=== PATIENT | male | born 1975 | race Caucasian/White ===

== ENCOUNTER 2021-06-01 03:00 | Day surgery (SDC) | payer BC, SELFPAY ==
[2021-05-13 14:42] VITALS: BMI 29.9
[2021-06-01 11:55] VITALS: BP 112/81; PULSE 100; RESP 18; TEMP 36.2; O2SAT 100; BMI 29.2
[2021-06-01] MEDS: LACTATED RINGERS 1,000 ML 150 ML IV CONT (12:09)
--- NOTE | 2021-06-01 12:26 | P.PNAN_ITS ---
Anes - Initial Pre Proc Eval Procedure: Operation Date: 06/01/21 13:00 Proposed Procedures p Esophagogastroduodenoscopy & Screening Colonoscopy - Carlo Walker MD Date/Time: 06/01/21 12:26 Surgeon: Carlo Key MD Pre Op Diagnosis: GERD, Bloating, neoplasm screening Patient Data Age: 46 Gender: M Height: 1.83 m Weight: 98 kg Last Vital Signs Temp 97.2 F L 06/01/21 11:55 Pulse 100 06/01/21 11:55 Resp 18 06/01/21 11:55 BP 112/81 06/01/21 11:55 Pulse Ox 100 06/01/21 11:55 Allergies Allergy/AdvReac Type Severity Reaction Status Date / Time No Known Drug Allergies Allergy Unknown Unknown Verified 06/01/21 11:54 Home Medications Medication Instructions Recorded Confirmed Type rosuvastatin 20 mg tablet 10 mg PO HS tablet 03/09/21 06/01/21 History lansoprazole 15 mg PO DAILY PRN 05/13/21 06/01/21 History metoprolol succinate 25 mg PO HS 05/13/21 06/01/21 History Patient hx anesthesia problems: none Family hx anesthesia problems: none Results Review: All pre-operative results and documents have been reviewed as part of the pre-operative evaluation. [facility] Past Medical History Medical History (Updated 04/30/21 @ 13:23 by Carlo Key MD) Bloating Colon cancer screening Dyslipidemia Essential (primary) hypertension GERD without esophagitis Intermittent low back pain Family History Family History Grandparent Family history of malignant neoplasm of bone Family history of malignant neoplasm of ovary Other Diabetes mellitus Social History Social History (Updated 04/30/21 @ 13:06 by Karen Cuello CMA) Smoking status: Never smoker Alcohol intake: current Drinks per week: 2 Substance use: never Substance use type: does not use Living arrangements: with family Gender identity (if verbalized by the patient): Male Spiritual care concerns: No Anes - Eval Final PreProcedure Day of Procedure 06/01/21 12:26 Patient weight: overweight Heart: regular rate and rhythm Lungs: clear to auscultation Airway: Mallampati scale class II Neurological: alert and oriented Last oral intake: >/= 8 hours ASA classification: II Emergent: no Anesthetic plan: proceed Anesthesia type and monitoring: general GIVS and standard monitoring Results Review: All pre-operative results and documents have been reviewed as part of the pre-operative evaluation. Informed Consent: The patient's anesthetic plan and its attendant risks and benefits were discussed with the patient/family/POA. Questions were solicited and answers provided to the satisfaction of the patient/family/POA.
--- NOTE | 2021-06-01 12:49 | PM.HPGS ---
History of Present Illness History of Present Illness Consent: Risks, benefits, and alternatives have been discussed and questions answered. Patient agrees to proceed with procedure. Chief complaint: GERD, Bloating, neoplasm screening Narrative: Brandon Pelayo is a 46 year old male with longstanding ged controlled with otc meds and change in diet but never had egd, also first colonoscopy today Review of Systems Constitutional: Constitutional: Denies headache(s) and Denies weakness Eyes: Eyes: Denies blurry vision ENT: Reports Normal hearing present, Denies headache(s) and Denies neck pain Cardiovascular: Cardiovascular: Denies chest pain and Denies dyspnea Respiratory: Respiratory: Denies dyspnea Gastrointestinal: Gastrointestinal: Reports no additional gastrointestinal complaints Genitourinary: Genitourinary: Denies dysuria Musculoskeletal: Musculoskeletal: Denies neck pain Integumentary/Breasts: Skin/Breast: Denies dry skin Neurologic: Reports Normal hearing present, Denies headache(s) and Denies weakness Psychiatric: Psychiatric: Denies anxiety Endocrine: Endocrine: Denies change in body appearance Hematologic/Lymphatic: Hematologic/Lymphatic: Denies easy bleeding Allergic/Immunologic: Allergic/Immunologic: Denies urticaria PMFSH Past Medical History Medical History (Updated 04/30/21 @ 13:23 by Carlo Key MD) Bloating Colon cancer screening Dyslipidemia Essential (primary) hypertension GERD without esophagitis Intermittent low back pain Family History Family History Grandparent Family history of malignant neoplasm of bone Family history of malignant neoplasm of ovary Other Diabetes mellitus Social History Social History (Updated 04/30/21 @ 13:06 by Karen Cuello CMA) Smoking status: Never smoker Alcohol intake: current Drinks per week: 2 Substance use: never Substance use type: does not use Living arrangements: with family Gender identity (if verbalized by the patient): Male Spiritual care concerns: No Meds Home Medications and Allergies Home Medications Medication Instructions Recorded Confirmed Type rosuvastatin 20 mg tablet 10 mg PO HS tablet 03/09/21 06/01/21 History lansoprazole 15 mg PO DAILY PRN 05/13/21 06/01/21 History metoprolol succinate 25 mg PO HS 05/13/21 06/01/21 History Allergies Allergy/AdvReac Type Severity Reaction Status Date / Time No Known Drug Allergies Allergy Unknown Unknown Verified 06/01/21 11:54 Vital Signs Vital Signs - 24 hr 06/01/21 11:55 Temperature 97.2 F L Pulse Rate 100 Respiratory Rate 18 Blood Pressure 112/81 Pulse Oximetry 100 Exam Const: General: comfortable and no acute distress HENMT: General nose exam: Normal nares present Eyes: General: appearance normal, both eyes and all related structures Neck: Neck: no JVD Resp: Auscultation: clear to auscultation bilaterally Cardio: Rate: regular rate Rhythm: regular rhythm GI: Inspection: non-distended GI Palp: Yes Soft to palpation Skin: General skin exam: normal color Neuro: General: gait normal Speech: normal speech Extrem: General: normal to inspection Psych: Mental Status: mental status grossly normal Assessment and Plan Assessment and plan (1) GERD without esophagitis: Code(s): K21.9 - Gastro-esophageal reflux disease without esophagitis Status: Acute Assessment and Plan: egd (2) Colon cancer screening: Code(s): Z12.11 - Encounter for screening for malignant neoplasm of colon Status: Acute Assessment and Plan: colonoscopy
--- NOTE | 2021-06-01 12:55 | SUR.OPER ---
EGD- [id number] [facility] [id number]
[2021-06-01 13:26] VITALS: BP 114/76; PULSE 71; RESP 18; O2SAT 99
[2021-06-01 13:36] VITALS: BP 114/81; PULSE 72; RESP 18; O2SAT 99
[2021-06-01 13:46] VITALS: BP 112/79; PULSE 69; RESP 18; O2SAT 99
== END 2021-06-01 14:04 | disposition home or self-care (01) ==
PROVIDERS: PCP Family Medicine; Visit Provider Internal Medicine Gastroenterology
PROC: 0DJ08ZZ Inspection of Upper Intestinal Tract, Via Natural or Artificial Opening Endoscopic (ICD-10-PCS; CPT 43235; principal; 2021-06-01 13:00)
DX: Z12.11 Encounter for screening for malignant neoplasm of colon (principal); D12.0 Benign neoplasm of cecum; D12.2 Benign neoplasm of ascending colon; D12.4 Benign neoplasm of descending colon; D12.5 Benign neoplasm of sigmoid colon; K63.5 Polyp of colon; K64.8 Other hemorrhoids; K21.9 Gastro-esophageal reflux disease without esophagitis; K29.70 Gastritis, unspecified, without bleeding; I10 Essential (primary) hypertension; E78.5 Hyperlipidemia, unspecified
CPT/HCPCS: 45380; 45385; 43239; 88305; J2704; J7120

== ENCOUNTER 2023-08-24 14:09 | Outpatient (CLI) | payer BC, SELFPAY ==
--- NOTE | ~2023-08-24 | US_ITS ---
EXAMINATION: US arterial ankle brachial ind DATE: 08/24/2023 16:19 INDICATION: Lower limb pain. Hypercholesterolemia and hypertension. TECHNIQUE: Segmental pressures and plethysmographic and Doppler waveforms of the brachial and lower e xtremity arteries were obtained. COMPARISON: None. FINDINGS: Right and left brachial artery pressures of 126 mm Hg and 126 mm Hg, respectively, are concordant (no rmal difference <= 30 mmHg). The right ankle-brachial index (MEKHI) is 1.42 (normal >= 0.9-1.0). The right great toe-brachial index (TBI) is 0.52 (normal >= 0.65). Arterial Doppler waveforms are triphasic with brisk systolic upstroke s at both right posterior tibial and dorsalis pedis arteries. The left MEKHI is 1.47. The left TBI is 0.72. Arterial Doppler waveforms are triphasic with brisk systo lic upstrokes at both left posterior tibial and dorsalis pedis arteries. IMPRESSION: 1. Mild arterial occlusive disease to the right lower limb with normal right MEKHI but mildly decreased right TBI. 2. No significant arterial occlusive disease to the left lower limb with normal left MEKHI and TBI. Reviewed, dictated and finalized at location B. DAY DIRECTOR IMPRESSION: 1. Mild arterial occlusive disease to the right lower limb with normal right AB I but mildly decreased right TBI. 2. No significant arterial occlusive disease to the left lower limb with normal left MEKHI and TBI.
== END 2023-08-24 14:10 | disposition home or self-care (01) ==
PROVIDERS: PCP Family Medicine; Visit Provider Nurse Practitioner Family
DX: I77.1 Stricture of artery (principal); I10 Essential (primary) hypertension; E78.00 Pure hypercholesterolemia, unspecified
CPT/HCPCS: 93922

== ENCOUNTER 2023-09-21 13:31 | Outpatient (CLI) | payer BC, SELFPAY ==
--- NOTE | ~2023-09-21 | MR_ITS ---
EXAMINATION: MR lumbar spine wo con DATE: 09/21/2023 14:40 INDICATION: Pain in left thigh. Tingling of the feet and left leg. Low back pain. TECHNIQUE: Magnetic resonance imaging (MRI) of the lumbar spine was performed without intravenous con trast. Sequences included sagittal T2-weighted FSE, sagittal T2-weighted FS FSE, sagittal T1-weighted FSE, and axial T2-weighted FSE. COMPARISON: None FINDINGS: There is 4 degrees levocurvature of lumbar spine. There is 3 mm retrolisthesis of L3 on L4, L4 on L5, and L5 on S1. Vertebral body heights are normal. There is mildly decreased disc height at L2-L3 and moderately decreased disc height at L4-L5 and L5-S1. The distal spinal cord signal intensit y is normal. The conus medullaris is at T12-L1. The following disc levels are specifically discussed: L1-L2: The disc does not extend beyond the endplate margin. There is mild bilateral facet joint osteo arthritis. There is no neural foraminal stenosis. There is no central canal stenosis. L2-L3: The disc is bulging and has an annular fissure. There is mild bilateral facet joint osteoarthr itis. There is mild bilateral neural foraminal stenosis. There is mild central canal stenosis. L3-L4: The disc is bulging and has an annular fissure. There is mild left facet joint osteoarthritis. There is mild right and moderate left neural foraminal stenosis. There is mild central canal stenosi s. L4-L5: The disc is bulging and has an annular fissure. There is mild bilateral facet joint osteoarthr itis. There is moderate bilateral neural foraminal stenosis. There is mild central canal stenosis. L5-S1: This is bulging and has an annular fissure. There is moderate left facet joint osteoarthritis. There is mild right and moderate left neural foraminal stenosis. There is mild central canal stenosi s. IMPRESSION: 1. Moderate lumbar spondylosis. Reviewed, dictated and finalized at location A.
--- NOTE | ~2023-09-21 | MR_ITS ---
EXAMINATION: MR femur LT wo con DATE: 09/21/2023 14:40 INDICATION: Left thigh pain TECHNIQUE: Magnetic resonance imaging (MRI) of the left thigh was performed without intravenous contr ast. A marker was placed over the site of maximal pain at the anterior mid thigh. Sequences included axial, sagittal and coronal T1-weighted FSE and fluid sensitive FSE STIR. The coronal images include the contralateral right thigh. COMPARISON: None. FINDINGS: The marker indicating the site of pain is positioned anterior to the distal rectus femoris muscle. Th ere is normal and symmetric muscle bulk and signal throughout both thighs. Visualized portions of the tendons all appear normal. The bone marrow signal is also normal throughout. No knee joint effusion. Neurovascular structures are unremarkable. No pathologically enlarged left inguinal lymphadenopathy. No abnormal masses or fluid collections identified. IMPRESSION: 1. Normal MRI of the left thigh. No etiology identified for reported pain at the anterior left thigh. Reviewed, dictated and finalized at location A. IMPRESSION: 1. Normal MRI of the left thigh. No etiology identified for reported pain at th e anterior left thigh.
== END 2023-09-21 13:32 ==
LOC: GOSHIMG 13:32
PROVIDERS: PCP Family Medicine; Visit Provider Nurse Practitioner Family
DX: M43.06 Spondylolysis, lumbar region (principal); M79.652 Pain in left thigh
CPT/HCPCS: 72148; 73721

== ENCOUNTER 2024-09-13 14:29 | Outpatient (CLI) | payer BC, SELFPAY ==
--- NOTE | 2024-09-13 | ECHO_ITS ---
Patient Info Name: Brandon Pelayo Age: 49 years : 1975 Gender: Male Ht: 72 in Wt: 227 lbs BSA: 2.31 m2 HR: 64 bpm BP: 142 / 92 mmHg Heart Rhythm: Sinus Rhythm Technical Quality: Fair Exam Date: 09/13/2024 3:01 PM Exam Location: Echo Lab Patient Status: Outpatient Admit Date: 09/13/2024 Staff Ordering Physician: Raudel, Jose Page MD Pc Installation Engineer: Caro Acuna RDCS Attending Provider: RaudelJose MD Referring Physician: Trish MARTINEZ; Exam Type: CA echo doppler color flow Study Info Indications I77.810 - Aortic root dilation Complete two-dimensional, color flow and Doppler transthoracic echocardiogram is performed. Summary 1. Left ventricular chamber dimension is normal. 2. Left ventricular systolic function is normal, estimated at 65-70%. 3. There is mildly increased left ventricular wall thickness. 4. The left ventricular diastolic function is grade I diastolic dysfunction. 5. Right ventricular chamber dimension is mildly enlarged. 6. Right ventricular systolic function is normal. 7. Right atrial chamber dimension is mildly enlarged. 8. Sinus of Valsalva measured at 4.0cm. Sinotubular junction 3.6cm. Ascending aorta 3.8cm. 9. No significant valvular disease. Left Ventricle Left ventricular chamber dimension is normal. Left ventricular systolic function is normal, estimated at 65-70%. There is mildly increased left ventricular wall thickness. The left ventricular diastolic function is grade I diastolic dysfunction. Right Ventricle Right ventricular chamber dimension is mildly enlarged. Right ventricular systolic function is normal. Left Atria Left atrial chamber dimension is normal. Right Atria Right atrial chamber dimension is mildly enlarged. Atrial Septum Intact interatrial septum visualized by color flow imaging. Aortic Valve The aortic valve is not well visualized. There is no aortic valve stenosis. There is no aortic valve regurgitation. Pulmonic Valve The pulmonic valve is not well visualized. There is no pulmonic regurgitation. Mitral Valve There is trace mitral valve regurgitation. Tricuspid Valve There is trace tricuspid valve regurgitation. Pericardium/Pleural There is no pericardial effusion. Inferior Vena Cava Normal inferior vena cava with >50% collapse upon inspiration consistent with normal right atrial pressure, 3 mmHg. Aorta Sinus of Valsalva measured at 4.0cm. Sinotubular junction 3.6cm. Ascending aorta 3.8cm. Left Ventricular Outflow Tract Name Value Normal LVOT 2D LVOT Diameter 2.0 cm LVOT Doppler LVOT Peak Gradient 5 mmHg LVOT Mean Gradient 3 mmHg LVOT VTI 25 cm LVOT VTI/AV VTI Ratio 0.8 LVOT Stroke Volume 80 ml LVOT CO 14.6 l/min LVOT CI 6.3 l/min/m2 Pulmonic Valve Name Value Normal PV Doppler PV Peak Gradient 6 mmHg Mitral Valve Name Value Normal MV Doppler MV Decel Carroll 435 cm/s2 MV PHT 54 ms MV Area (PHT) 4.0 cm2 4.0-5.0 MV Diastolic Function MV E Peak Velocity 82 cm/s MV A Peak Velocity 52 cm/s MV E/A 1.6 MV Decel Time 188 ms MV Annular TDI MV E/e' (Septal) 6.1 <=8.0 MV E/e' (Lateral) 5.9 <=8.0 MV E/e' (Average) 6.0 Tricuspid Valve Name Value Normal TV Regurgitation Doppler TR Peak Velocity 233 cm/s TR Peak Gradient 18 mmHg Estimated PAP/RSVP RA Pressure 3 mmHg <=5 PA Systolic Pressure 25 mmHg <36 RV Systolic Pressure 25 mmHg <36 Aorta Name Value Normal Ascending Aorta Ao Root Diameter (MM) 3.8 cm Ao Root Diam Index (MM) 1.7 cm/m2 Aortic Valve Name Value Normal AV Doppler AV Peak Velocity 136 cm/s AV Peak Gradient 7 mmHg AV Mean Gradient 5 mmHg AV VTI 32 cm AV Area (Cont Eq VTI) 2.5 cm2 >=3.0 AV Area (Cont Eq Laz) 2.6 cm2 AV Regurgitation 2D LVOT Area 3.2 cm2 Ventricles Name Value Normal LV Dimensions 2D/MM IVS Diastolic Thickness (2D) 1.1 cm 0.6-1.0 LVID Diastole (2D) 5.0 cm 4.2-5.8 LVIW Diastolic Thickness (2D) 1.1 cm 0.6-1.0 LVID Systole (2D) 2.9 cm 2.5-4.0 LVOT Diameter 2.0 cm LV Mass (2D Cubed) 205.06 g 88.00-224.00 LV Mass Index (2D Cubed) 89 g/m2 49-115 Relative Wall Thickness (2D) 0.44 LV Fractional Shortening/Ejection Fraction 2D/MM LV Fractional Shortening (2D) 41 % 25-43 LV EF (2D Teicholz) 72 % 52-72 LV Diastolic Volume (4C MOD) 126 ml LV EF (4C MOD) 64 % LV Diastolic Volume (2C MOD) 98 ml LV EF (2C MOD) 78 % LV Diastolic Volume (BP MOD) 115 ml 62-150 LV Diastolic Volume Index (BP MOD) 50 ml/m2 34-74 LV Systolic Volume (BP MOD) 31 ml 21-61 LV Systolic Volume Index (BP MOD) 14 ml/m2 11-31 LV EF (BP MOD) 73 % 52-72 LV Diastolic Length (4C) 9.3 cm LV Systolic Length (4C) 7.2 cm LV Stroke Volume (4C MOD) 80 ml RV Dimensions 2D/MM RVID Diastole (2D) 4.5 cm 2.5-3.5 Atria Name Value Normal LA Dimensions LA Dimension (MM) 3.1 cm 3.0-4.1 LA Volume (4C A-L) 52 ml LA Volume (BP A-L) 57 ml RA Dimensions RA Area (4C) 19.7 cm2 <=18.0 Report Signatures
--- NOTE | 2024-09-13 16:11 | IVDEFINITY ---
Attempted IV for Definity, IV blew, pt did not want to try again.
== END 2024-09-13 14:30 | disposition home or self-care (01) ==
PROVIDERS: PCP Family Medicine; Visit Provider Internal Medicine Cardiovascular Disease
DX: I77.810 Thoracic aortic ectasia (principal); I51.89 Other ill-defined heart diseases
CPT/HCPCS: 93306

== ENCOUNTER 2024-10-26 01:03 | Day surgery (SDC) | payer BC, SELFPAY ==
[2024-10-17 09:21] VITALS: BMI 30.8
[2024-10-26 08:48] VITALS: BP 145/87; PULSE 92; RESP 20; TEMP 36.2; O2SAT 99
--- NOTE | 2024-10-26 08:50 | P.PNAN_ITS ---
Anes - Initial Pre Proc Eval Procedure: Operation Date: 10/26/24 10:00 Proposed Procedures p Colonoscopy - Carlo Key MD Date/Time: 10/26/24 08:50 Surgeon: Carlo Key MD Pre Op Diagnosis: neoplasm screening Patient Data Age: 49 Gender: M Height: 1.83 m Weight: 101.9 kg Last Vital Signs Temp 36.2 C L 10/26/24 08:48 Pulse 92 10/26/24 08:48 Resp 20 10/26/24 08:48 BP 145/87 H 10/26/24 08:48 Pulse Ox 99 10/26/24 08:48 O2 Del Method Room Air 10/26/24 08:48 Allergies Allergy/AdvReac Type Severity Reaction Status Date / Time No Known Drug Allergies Allergy Unknown Unknown Verified 10/26/24 08:47 Home Medications ?Medication ?Instructions ?Recorded ?Confirmed ?Type rosuvastatin 20 mg tablet 10 mg (1/2 x 20 mg) PO HS #90 tabs 06/29/23 10/26/24 Rx cholecalciferol (vitamin D3) 25 25 mcg PO DAILY 08/17/23 10/17/24 History mcg (1,000 unit) capsule coenzyme Q10 100 mg capsule 100 mg PO DAILY 08/17/23 10/26/24 History (CoQ-10) metoprolol succinate 50 mg 50 mg PO DAILY #90 tabs 05/29/24 10/26/24 Rx tablet,extended release 24 hr omeprazole 20 mg capsule,delayed 20 mg PO DAILY 07/04/24 10/17/24 History release Patient hx anesthesia problems: none Family hx anesthesia problems: none Results Review: All pre-operative results and documents have been reviewed as part of the pre- operative evaluation. [facility] Past Medical History Medical History (Updated 10/26/24 @ 08:51 by Everardo Hill DO) Panic attack Migraines Intermittent low back pain Essential (primary) hypertension Dyslipidemia GERD without esophagitis Surgical History Surgical History No history of previous surgery Family History Family History Grandparent Family history of malignant neoplasm of bone Family history of malignant neoplasm of ovary Other Diabetes mellitus Social History Social History (Updated 07/04/24 @ 13:45 by Uyen Vick [facility]) Smoking status: Never smoker Alcohol intake: current Drinks per week: 3 Substance use: never Substance use type: does not use Lack of Transportation: No Lack of Food: Never True Current Housing: I Have Housing Concerned About Future Housing: No Difficulty Paying Gas/Electric Bills: No Difficulty Paying for Meds: No Currently Unemployed: No Education: Master's Degree or Higher Difficulty w/ Childcare or Family Care: No Living arrangements: with family Occupation/Education: occupation Gender identity (if verbalized by the patient): Male Spiritual care concerns: No Agree to blood products: Yes Anes - Eval Final PreProcedure Day of Procedure 10/26/24 08:50 Patient weight: obese Heart: regular rate and rhythm Lungs: clear to auscultation Airway: Mallampati scale class II Neurological: alert and oriented Last oral intake: >/= 8 hours ASA classification: III Emergent: no Anesthetic plan: proceed Anesthesia type and monitoring: general GIVS and standard monitoring Results Review: All pre-operative results and documents have been reviewed as part of the pre- operative evaluation. Informed Consent: The patient's anesthetic plan and its attendant risks and benefits were discussed with the patient/family/POA. Questions were solicited and answers provided to the satisfaction of the patient/family/POA.
[2024-10-26] MEDS: LACTATED RINGERS 1,000 ML 150 ML IV CONT (08:56)
--- NOTE | 2024-10-26 09:15 | PM.HPGS ---
History of Present Illness History of Present Illness Consent: Risks, benefits, and alternatives have been discussed and questions answered. Patient agrees to proceed with procedure. Chief complaint: neoplasm screening Narrative: Brandon Pelayo is a 49 year old male with colon polyp in 2020 Review of Systems Review of Systems: All systems reviewed & are unremarkable except as noted in HPI and below PMFSH Past Medical History Medical History (Updated 10/26/24 @ 09:18 by Carlo Key MD) Colon polyp Panic attack Migraines Intermittent low back pain Essential (primary) hypertension Dyslipidemia GERD without esophagitis Surgical History Surgical History No history of previous surgery Family History Family History (Reviewed 07/04/24 @ 13:44 by Uyen Sanders [facility]) Grandparent Family history of malignant neoplasm of bone Family history of malignant neoplasm of ovary Other Diabetes mellitus Social History Social History (Updated 07/04/24 @ 13:45 by Uyen Vick [facility]) Smoking status: Never smoker Alcohol intake: current Drinks per week: 3 Substance use: never Substance use type: does not use Lack of Transportation: No Lack of Food: Never True Current Housing: I Have Housing Concerned About Future Housing: No Difficulty Paying Gas/Electric Bills: No Difficulty Paying for Meds: No Currently Unemployed: No Education: Master's Degree or Higher Difficulty w/ Childcare or Family Care: No Living arrangements: with family Occupation/Education: occupation Gender identity (if verbalized by the patient): Male Spiritual care concerns: No Agree to blood products: Yes Meds Home Medications and Allergies Home Medications ?Medication ?Instructions ?Recorded ?Confirmed ?Type rosuvastatin 20 mg tablet 10 mg (1/2 x 20 mg) PO HS #90 tabs 06/29/23 10/26/24 Rx cholecalciferol (vitamin D3) 25 25 mcg PO DAILY 08/17/23 10/17/24 History mcg (1,000 unit) capsule coenzyme Q10 100 mg capsule 100 mg PO DAILY 08/17/23 10/26/24 History (CoQ-10) metoprolol succinate 50 mg 50 mg PO DAILY #90 tabs 05/29/24 10/26/24 Rx tablet,extended release 24 hr omeprazole 20 mg capsule,delayed 20 mg PO DAILY 07/04/24 10/17/24 History release Allergies Allergy/AdvReac Type Severity Reaction Status Date / Time No Known Drug Allergies Allergy Unknown Unknown Verified 10/26/24 08:47 Vital Signs Vital Signs - 24 hr 10/26/24 08:48 Temperature 97.1 F L Pulse Rate 92 Respiratory Rate 20 Blood Pressure 145/87 H Pulse Oximetry 99 Oxygen Delivery Room Air Exam Const: General: comfortable and no acute distress HENMT: Face/Nose/Sinus: Normal nares present Eyes: General: appearance normal, both eyes and all related structures Neck: Neck: no JVD Resp: Auscultation: clear to auscultation bilaterally Cardio: Rate: regular rate Rhythm: regular rhythm GI: Inspection: non-distended GI Palp: Yes Soft to palpation Skin: General skin exam: normal color Neuro: General: gait normal Speech: normal speech Extrem: General: normal to inspection Psych: Mental Status: mental status grossly normal Assessment and Plan Assessment and plan (1) Colon polyp: Code(s): K63.5 - Polyp of colon Status: Acute Assessment and Plan: colonoscopy
[2024-10-26 09:35] VITALS: BP 112/76; PULSE 62; RESP 15; O2SAT 100
[2024-10-26 09:45] VITALS: BP 117/81; PULSE 60; RESP 16; O2SAT 100
== END 2024-10-26 10:05 | disposition home or self-care (01) ==
PROVIDERS: PCP Family Medicine; Visit Provider Internal Medicine Gastroenterology
PROC: 0DJD8ZZ Inspection of Lower Intestinal Tract, Via Natural or Artificial Opening Endoscopic (ICD-10-PCS; CPT 45378; principal; 2024-10-26 10:00)
DX: Z12.11 Encounter for screening for malignant neoplasm of colon (principal); K64.8 Other hemorrhoids; I10 Essential (primary) hypertension; E78.5 Hyperlipidemia, unspecified; K21.9 Gastro-esophageal reflux disease without esophagitis; F41.0 Panic disorder [episodic paroxysmal anxiety]; E66.9 Obesity, unspecified; Z68.30 Body mass index [BMI] 30.0-30.9, adult; Z86.0100 Personal history of colon polyps, unspecified; Z80.8 Family history of malignant neoplasm of other organs or systems; Z80.41 Family history of malignant neoplasm of ovary
CPT/HCPCS: 45378; J2003; J2704; J7120